=== PATIENT | female | born 1955 | race Caucasian/White ===

== ENCOUNTER → 2019-09-08 16:27 | Outpatient (CLI) | payer OTHER, SELFPAY ==
--- NOTE | 2019-09-08 16:33 | MM_ITS ---
PROCEDURE: MM DIG SCREENING MAMM BI W/CAD CLINICAL INDICATION: SCREENING COMPARISON: MAMMOGRAM SCREENING from 03/29/2009 TECHNIQUE: Standard CC and MLO images were obtained. R2 CAD reviewed. FINDINGS: Average fibroglandular tissue. There are bilateral benign-appearing nodules with a few areas of asymmetry which may be related to fibroglandular tissue. 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 Benign-appearing calcifications are also noted small cluster of calcifications noted in the upper outer left breast and lower inner right breast probably benign. Suggest 6 month follow-up to confirm new baseline.. No malignant appearing mass or malignant-appearing microcalcification. IMPRESSION: BI-RAD Category: 3 Probably Benign Finding Short Term Follow-up FOLLOW-UP: 6M 6Month Follow-up (A letter has been sent to the patient regarding results of the study.) Dictated by: Monty Gomez MD 09/16/2019 10:19 Electronically signed by Monty Gomez MD in [place] 09/16/2019 10:19
== END ==
PROVIDERS: PCP Family Medicine; Visit Provider Family Medicine
DX: Z12.31 Encounter for screening mammogram for malignant neoplasm of breast (principal)
CPT/HCPCS: 77067

== ENCOUNTER 2025-02-24 07:58 | Outpatient (CLI) | payer MEDICARE, SELFPAY ==
[2025-02-24 08:48] LABS: Basophils # 0.1 K/mm3 (0-0.2); Basophils % 1.1 % (0.1-2.0); Eosinophils # 0.1 K/mm3 (0.0-0.4); Eosinophils % 2.1 % (0.1-12.0); Hematocrit 47.9 % (37.0-47.0); Hemoglobin 16.3 g/dL (12.2-16.2); Lymphocytes # 1.7 K/mm3 (0.7-4.5); Lymphocytes % 27.8 % (10-50); Mean Corpuscular Hemoglobin 31.6 pg (27.0-31.2); Mean Corpuscular Volume 92.8 fl (81-99); Mean Platelet Volume 10.7 fl (7.4-10.4); Monocytes # 0.6 K/mm3 (0.1-1.0); Monocytes % 9.9 % (1.7-9.3); Neutrophils # 3.6 K/mm3 (1.8-7.8); Neutrophils % 58.1 % (37.0-80.0); Platelet Count 216 K/mm3 (142-424); Red Blood Count 5.16 M/mm3 (4.20-5.40); White Blood Count 6.2 K/mm3 (4.8-10.8)
[2025-02-24 09:04] LABS: Albumin Level 4.1 g/dl (3.5-5.0)
[2025-02-24 09:05] LABS: Chloride 100 mmol/L (98-107); Potassium 3.8 mmoL/L (3.5-5.1); Sodium 135 mmol/L (136-145)
[2025-02-24 09:07] LABS: Alanine Aminotransferase 31 U/L (12-78); Anion Gap 10.8 mEq/L (5-15); Aspartate Amino Transferase 36 U/L (14-36); Bilirubin,Unconjugated 0.5 mg/dL (0.0-1.1); Blood Urea Nitrogen 30 mg/dl (7-17); Carbon Dioxide 28 mmol/L (22.0-30.0); Estimated Glomerular Filt Rate 49 ml/min (>60); GFR (African American) 60 ML/MIN (>60)
[2025-02-24 09:08] LABS: Alkaline Phosphatase 77 U/L (38-126); Bilirubin,Direct 0.2 mg/dl (0.0-0.4); Bilirubin,Indirect 0.5 mg/dL (0.0-0.9); Bilirubin,Total 0.7 mg/dl (0.2-1.3); Calcium 9.9 mg/dl (8.4-10.2); Chol/HDL Ratio 3.2 (1-3.5); Cholesterol 250 mg/dl (140-200); Glucose 101 mg/dl (74-100); HDL Cholesterol 77 mg/dl (40-60); Total Protein,Serum 6.6 g/dl (6.3-8.2); Triglycerides 108 mg/dl (30-150); VLDL Cholesterol 22 mg/dL (0-40)
[2025-02-24 09:19] LABS: Direct LDL Cholesterol 134.35 mg/dL (100-129)
[2025-02-24 09:24] LABS: Free T4 (Free Thyroxine) 1.33 ng/dl (0.78-2.19)
[2025-02-24 09:39] LABS: Thyroid Stimulating Hormone 5.16 uIU/mL (0.465-4.68)
[2025-02-24 10:15] LABS: Hemoglobin A1C 5.5 % (4.0-6.0)
[2025-02-26 16:19] LABS: Cortisol,AM 13.8 ug/dL (6.2-19.4)
== END 2025-02-24 23:59 | disposition home or self-care (01) ==
LOC: LAB 08:00
PROVIDERS: PCP Nurse Practitioner Family; Visit Provider Internal Medicine
DX: R94.31 Abnormal electrocardiogram [ECG] [EKG] (principal); I10 Essential (primary) hypertension; E11.9 Type 2 diabetes mellitus without complications; G47.33 Obstructive sleep apnea (adult) (pediatric); R53.83 Other fatigue; R06.00 Dyspnea, unspecified; R07.9 Chest pain, unspecified
CPT/HCPCS: 36415; 80048; 80061; 80076; 82533; 83036; 84439; 84443; 85025

== ENCOUNTER 2025-03-15 09:28 | Outpatient (CLI) | payer MEDICARE, SELFPAY ==
--- NOTE | 2025-03-15 | CA_ITS ---
APPROVED REPORT Exam: Pharmacologic Technologist: Sushma Garza Ht: 4 ft 9 in Wt: 226 lbs BSA: 1.89 m2 Stress Test Details Test: Lexiscan Reason for pharmacologic stress test: physical limitation. HR Resting HR: 60 bpm Max Heart Rate (APMHR): 151 bpm Max HR Achieved: 73 bpm Target HR (85% APMHR): 128 bpm % of APMHR: 48 Recovery HR: 65 bpm BP Resting BP: 120.0/51.0 mmHg Max BP: 120.0/51.0 mmHg Recovery BP: 107.0/59.0 mmHg ECG Resting ECG: NSR Stress ECG Conclusion Symptoms: None. Arrhythmias/Ectopy: None. ST-T Changes: <1.[address] Segment changes. Conclusion: Non-Diagnostic Lexiscan stress. Electronically signed by : Jackie Camop MD 03/15/2025 22:50:16
--- NOTE | 2025-03-15 | CA_ITS ---
APPROVED REPORT EXAM: Comprehensive 2D, Doppler, and color-flow Echocardiogram Slat Basket Maker Machine: Danisha Melendez CRT Ht: 4 ft 11 in Wt: 226lbs BSA: 1.94 BP: 113/65 mmHg Indications: Abnormal ECG, Chest Pain, Shortness of Breath, Diabetes, Hyperlipidemia, Hypertension/HDD, ALCIDES 2D Dimensions LA Volume 33.00 mL LA Volume Index 16.60 mL/m2 (M/F) 16-34 M-Mode Dimensions RVDd 2.39 cm (0.9-2.6) LA Diam 3.47 cm (1.9-4.0) LVDd 4.18 cm (3.5-5.7) LVDs 3.75 cm (3.5-5.7) IVSd 1.69 cm (0.6-1.1) PWd 0.80 cm (0.6-1.1) EF (Teich) 22.80% FS 10.30% EDV (Teich) 77.70 mL TAPSE 2.52 (<1.7) ESV (Teich) 60.00 mL LV Diastology E Decel Time 390 (160-240 msec) E/A Ratio 0.68 MED A' 8.70 cm/s LAT A' 15.50 cm/s Aortic Valve AO Peak GR. 5.90 mmHg Mitral Valve MV A Velocity 155.0 (40-130 cm/s) E/A Ratio 0.68 MV Mean Gr. 4.20 (<2mmHg) MV PHT 114.0 ms Pulmonary Valve PV Peak Velocity 158.0 (50-150 cm/s) Tricuspid Valve TR P. Velocity 114.00 cm/s RAP Estimate 10.00 mmHg RVSP 15.20 mmHg Left Ventricle The left ventricle is normal size. The left ventricular systolic function is normal. The left ventricular ejection fraction is within the normal range. There is increased LV wall thickness. There is normal LV segmental wall motion. The left ventricular diastolic function is normal. LVEF is 55%. Right Ventricle The right ventricle is normal size. The right ventricular systolic function is normal. Atria Left atrium is mildly dilated. Right atrium is mildly dilated. There is no Doppler evidence of interatrial shunt. Aortic Valve The aortic valve is mildly thickened. There is no aortic valvular stenosis. Trace aortic regurgitation. Mitral Valve Mild mitral annular calcification. The mitral valve leaflets are mildly thickened. No evidence of mitral valve stenosis. Mild mitral regurgitation. Tricuspid Valve Tricuspid valve is grossly normal in structure and function. Trace tricuspid rotation. There is insufficient TR jet to estimate RVSP. Pulmonic Valve The pulmonary valve is normal in structure. Trace pulmonic regurgitation. Great Vessels The aortic root is normal in size. IVC is normal in size and collapses >50% with inspiration. Pericardium There is no pericardial effusion. Other Information Study Quality: Technically Difficult Conclusion Technically difficult study due to poor acoustic windows. Normal biventricular systolic function. Biatrial dilation. Mild MR. Electronically signed by : Jackie Campo MD 03/15/2025 12:53:47
--- NOTE | 2025-03-15 11:30 | NM_ITS ---
APPROVED REPORT Exam: Nuclear Stress Test Indication: cp..soa..palpitations..fatigue Patient Location: Outpatient Stress Tech: Sushma Abernathy [place] Tech:Juany Stoner, ARRT, RT (R)(N) Ht: 4 ft 11 in Wt: 226 lbs Bra Size: 44d HR: 60 bpm BP: 120/51 mmHg BSA: 1.94 m2 TID: 1.06 BMI: 45.6 History: cp..soa..palpitations..fatigue Procedure: Patient received 0.4 mg of intravenous Lexiscan, resting heart rate 60 bpm, resting blood pressure 120/57 mmHg, with Lexiscan maximum heart rate achieved was 72 bpm which is 85 % of the maximum predicted heart rate and blood pressure was 100/53 mmHg. With Lexiscan, patient denied any complaint of chest pain. Cardiac Stress and Resting SPECT Images: Cardiac Stress and Resting SPECT images were obtained using technetium 99m Myoview 30.2 mCi stress and 10.20 mCi at rest. Resting and stress imaging in supine and prone positions demonstrate no evidence of fixed or reversible perfusion defects. Gated imaging demonstrates normal global and regional LV systolic function. LVEF is calculated at > 75%. Conclusion: No evidence of fixed or reversible perfusion defects. Gated imaging demonstrates normal global and regional LV systolic function. LVEF is calculated at > 75%. Electronically signed by : Jackie Campo MD 03/15/2025 22:43:10
[2025-03-15] MEDS: SODIUM CHLORIDE 0.9% 10ML SYR (RAD ONLY) 10 ML IV ×2 (13:24)
[2025-03-15] MEDS: ISOTOPE MYOVIEW (PER STUDY) 1 DOSE IV (13:24)
[2025-03-15] MEDS: REGADENOSON 0.4MG/5ML SYRINGE 0.4 MG IV (13:25)
== END 2025-03-15 23:59 | disposition home or self-care (01) ==
LOC: RT 09:30
PROVIDERS: PCP Nurse Practitioner Family; Visit Provider Internal Medicine
DX: I34.0 Nonrheumatic mitral (valve) insufficiency (principal); I10 Essential (primary) hypertension; E11.9 Type 2 diabetes mellitus without complications; R94.31 Abnormal electrocardiogram [ECG] [EKG]; G47.33 Obstructive sleep apnea (adult) (pediatric); R53.83 Other fatigue; R06.00 Dyspnea, unspecified; R07.9 Chest pain, unspecified
CPT/HCPCS: 78452; 93017; 93018; 93306; A9502; J2785

== ENCOUNTER → 2025-04-06 07:44 | Outpatient (CLI) | payer MEDICARE, SELFPAY ==
--- OUTSIDE RECORDS SUMMARY | 2025-04-06 07:46 | XMS_ITS | Data Portability ---
Author Organization [facility] GREGORY Asher ADMIN Address [address] [place] [address] Care Team Providers Care Billing Assistant Name Role Phone EHSAN RENDONANDA Primary Care Provider Assessment No assessment recorded. Plan of Treatment Reminders Order Date Submit Date Provider Last Modified By Organization Details Last Modified Time Details Appointments None record ed. Lab None record ed. Referral None record ed. Procedures None record ed. Surgeries None record ed. Imaging None record ed. Medication Orders None record ed. Patient TargetsNo targets recorded. Patient Instructions Encounter Date Encounter Id Patient Instructions Last Modified By Organization Details Last Modified Time 03/19/2023 [id number] I have personall y reviewed the data obtained and entered from the scribe, medical assistant ob gyn or nurse for this patient for this patient encounter. discussed with patient. Patient is candidate for hearing aid evaluation. [email or web address] Not available 03/19/2023 15:44:28 Reason for Referral None Reported. Results Created Date Observation Date Name Description Value Unit Range Abnormal Flag Note LastModifiedBy Organization Detail LastModifiedTime 03/16/20 23 03/16/2023 audio gram No observ ation record ed. [email or web address] Not Available 2022 15:10:36 Result Notes None recorded. Problems Name Problem SNOMED Code Status Onset Date Resolution Date Notes Provider Name and Address Organization Details Recorded Time Arthritis 4386854 Active Maria Teresa Wilman null, [place] - [facility] - [place] & [place] 2 14:22:40 Asthma 545741516 Active Maria Teresa Wilman null, [place] - [facility] - [place] & [place] 2 14:22:46 Seasonal allergic rhinitis 757000154 Active Maria Teresa Wilman null, [place] - [facility] - [place] & [place] 2 14:22:56 Diabetes mellitus 25002572 Active Maria Teresa Wilman null, [place] - [facility] - [facility] & [place] 2 14:23:03 Hypertensive disorder 08498700 Active Maria Teresa Wilman null, [place] - [facility] - [facility] & [place] 2 14:23:09 Allergic rhinitis 25533583 Active Maria Teresa Wilman null, [place] - [facility] - [facility] & [place] 3 09:28:25 Chronic ethmoidal sinusitis 38416210 Active Maria Teresa Wilman null, [place] - [facility] - [facility] & [place] 3 09:28:38 Chronic frontal sinusitis 56768280 Active Maria Teresa Wilman null, [place] - [facility] - [facility] & [place] 3 09:28:54 Deviated nasal septum 648542687 Active Maria Teresa Wilman null, [place] - [facility] - [facility] & [place] 3 09:29:03 Sensorineural hearing loss 35874196 Active 2022 ELLIS SALDIVAR, AUD [address] [facility], [place], [address] , [place] - [facility] - [place] & [place] 3 15:07:53 Problem Notes None recorded. Procedures Surgical History Date Name Laterality Status Provider Name and Address Organization Details Recorded Time 11/23/18 66 Appendectomy completed Maria Teresa Wilman [place] - [facility] - [place] & [place] 08/25/2022 11:19:46 11/23/18 66 Tonsillectomy/Ad enoidectomy completed Maria Teresa Wilman [place] - [facility] - [place] & [place] 08/25/2022 11:19:46 Other completed Maria Teresa Wilman [place] - ELEVATOR SERVICE TECHNICIAN T - [place] & [place] 08/25/2022 11:19:46 Sinus Surgery completed Maria Teresa Wilman [place] - [facility] - [place] & [place] 09/19/2022 08:44:35 Imaging Results Imaging Date Name Status LastModified by [facility] Details LastModified Time 03/16/2023 audiogram completed [email or web address] Information no t available 03/16/2023 15:10:36 Procedure Notes None recorded. Medical Equipment None Reported. Allergies No known drug allergies Medications Name Sig Start Date Stop Date Status Note LastModified by Organization Details LastModified Time prednisone 10 mg tablet TAKE 1 TABLET TWICE DAILY x7 DAYS, THEN 1 DAILY x7 DAYS 09/19 completed Not Available Not Available Not Available hydrocodone 5 mg-acetamin ophen 325 mg tablet Take 1 tablet every 6 hours by oral route as needed for 5 days. 10/14 completed Not Available Not Available Not Available meclizine 12.5 mg tablet Take 1 tablet every 12 hours by oral route. active Not Available Not Available No t Available amoxicillin 500 mg tablet Take 1 tablet every 12 hours by oral route as directed for 7 days. 10/14 completed Not Available Not Available Not Available levothyroxi ne 25 mcg tablet Take 1 tablet every day by oral route. active Not Available Not Available No t Available lisinopril 10 mg tablet Take 1 tablet every day by oral route. active Not Available Not Available No t Available triamterene 37.5 mg-hydrochl orothiazide 25 mg tablet Take 1 tablet every day by oral route. active Not Available Not Available No t Available montelukast 10 mg tablet Take 1 tablet every day by oral route. active Not Available Not Available No t Available escitalopra m 20 mg tablet Take 1 tablet every day by oral route. active Not Available Not Available No t Available levocetiriz ine 5 mg tablet Take 1 tablet every day by oral route. active Not Available Not Available No t Available Stool Softener 100 mg tablet Take 1 tablet every day by oral route. active Not Available Not Available No t Available Flonase Allergy Relief 50 mcg/actuati on nasal spray,suspe nsion [place] 1 spray every day by intranasa l route. active Not Available Not Available No t Available albuterol sulfate 90 mcg/actuati on breath activated powder inhaler Inhale 1 puff every 4 hours by inhalatio n route. active Not Available Not Available No t Available Vitals Date Recorded Body height Provider Name an d Address Organization Details Last Updated DateTime 03/19/2023 149.86 cm Diana Treadwellley [place] - [facility] - [facility] & [place] 03/19/2023 14:04:11 Social History None recorded. Functional Status None recorded. Mental Status None recorded. Family History Relationship Description Onset Age of this Age Resolved Age Notes LastModified by Organization Details LastModified Time Mother Allergy pt. added direct ly (08/17) [email or web address] Not available 08/17/2022 14:13:10 Father Allergy pt. added direct ly (08/17) [email or web address] Not available 08/17/2022 14:13:10 Brother Allergy pt. added direct ly (08/17) [email or web address] Not available 08/17/2022 14:13:10 Medical History Condition Response Diabetes Y Obesity Y Arthritis Y Ear or Hearing Problems Y Headaches Y Thyroid Problems Y Hypertension Y Gynecological HistoryNo gynecological history recorded. Obstetrics History GPAL:G 0 P 0 0 0 0 Past Encounters Encounter ID Performer Location Encounter Start Date Encounter Closed Date Diagnosis/Indication Diagnosis SNOMED-CT Code Diagnosis ICD10 Code Diagnosis Note [id number] Beni Salinas MD [address] [place] [address] [place] [address] 08/20/2022 13:04:11 08/20/2022 13:37:25 Chronic frontal sinusitis 37096238 J32.1 Chronic et hmoidal sinusitis 06819338 J32.2 [id number] Beni Salinas MD [facility] [id number] [facility] [place] [place] [address] 08/25/2022 11:13:57 08/25/2022 11:48:51 Chronic ethmoidal sinusitis 89431626 J32.2 Chronic fr ontal sinusitis 12293519 J32.1 Deviated nasal septum 12 6240936 J34.2 [id number] Beni Salinas MD [facility] [place] [address] [place] [address] 09/19/2022 08:34:40 09/19/2022 09:00:22 Chronic ethmoidal sinusitis 68820714 J32.2 Chronic fr ontal sinusitis 78755260 J32.1 Deviated nasal septum 12 2436275 J34.2 Postoperative visit 1836 42689 Z09 [id number] Beni Salinas MD [address] [place] [address] [place] [address] 10/14/2022 14:23:08 10/14/2022 14:49:06 Seasonal allergic rhinitis 258394342 J30.2 Chronic et hmoidal sinusitis 12530943 J32.2 Chronic fr ontal sinusitis 54767847 J32.1 Deviated nasal septum 12 9245736 J34.2 Postoperative visit 1836 47061 Z09 [id number] Beni Salinas MD [facility] [place] [address] 8 02/17/2023 13:32:22 02/17/2023 13:50:47 Dysfunction of eustachian tube 54241025 H69.90 Ear pressu re sensation 695317529 H93.8X9 Hearing loss 98625927 H9 1.90 [id number] VENTURA [facility] [address] [place] [address] 8 03/16/2023 14:39:44 03/16/2023 15:02:28 Sensorineural hearing loss 61656109 H90.3 [id number] Beni Salinas MD [facility] [place] [address] [place] [address] 8 03/19/2023 13:36:57 03/19/2023 14:56:33 Dysfunction of eustachian tube 57106052 H69.90 Ear pressu re sensation 073536105 H93.8X9 Hearing loss 41041748 H9 1.90 [id number] [facility]A [facility] [address] [place] [address] 8 04/06/2023 11:52:45 04/06/2023 12:09:48 Sensorineural hearing loss 86180681 H90.3 [id number] VENTURA LAZO [facility] [place] [address] [place] [address] 8 05/20/2023 12:48:16 05/20/2023 13:12:01 Sensorineural hearing loss 60010385 H90.3 [id number] VENTURA LAZO [facility] [place] [address] 07/22/2023 14:12:11 07/22/2023 14:23:38 Sensorineural hearing loss 66557793 H90.3 Health Concerns Section Related Observation LastModified by Organization Detai ls LastModified Time None Recorded Concern Status LastModified by Organization Details LastModified Time None Recorded Advance Directives Directive None Recorded Payers Insurance Date Sequence Insurance Name Policy Number Policy Fenton Covered Member ID Fenton Member ID Guarantor Name 06/11/2024 1 [place]ICARE[place]ARE[place] Ceci Hankins [id number] Ceci Hankins 06/11/2024 2 [employer] SUPPLEMENTAL - [employer] (MEDICARE SUPPLEMENT) Ceci Hankins [id number] Ceci Hankins 08/14/2024 PAYMENT PLAN Ceci Hankins Notes Date Note Type Note Provider Name and Address Organization Details Recorded Time 03/16/2023 text/html Ms. Hankins was s een today for an audiologic evaluation due to long-standing/gradu al hearing loss and recent aural fullness/pressure per Dr. Beni Salinas MD. Ms. Hankins reports that she was told she had high frequency hearing loss several years ago. She denies any significant communication disruptions. She also denies tinnitus, dizziness, ear pain, and excessive noise exposure. Otoscopic inspection was unremarkable bilaterally. VENTURA LAZO [id number] , [place], [address], [facility] 03/16/2023 15:10:40 03/19/2023 text/html Patient is here for follow up after audio. Patient presents in follow-up. Beni Salinas [place] [address] [place] [address],[address], [place], [address], [facility] 03/24/2023 12:01:32 04/06/2023 text/html Ms. Hankins was s een today for a hearing aid discussion. VENTURA LAZO , [place], [address], [facility] 04/06/2023 12:09:41 05/20/2023 text/html Ms. Hankins was s een today for a hearing aid trial. F/u 2-3 weeks. VENTURA LAZO [address] [facility],[address], [place], [address], [facility] & [place] 05/20/2023 13:12:44 07/22/2023 text/html Ms. Hankins was s een today for a hearing aid fitting. ELLIS SALDIVAR, VENTURA [address] [facility],[address], [place], [address], [facility] & [place] 07/22/2023 14:32:00 OBGyn Episode No OBEpisode recorded.
== END ==
LOC: SL 07:45
PROVIDERS: PCP Internal Medicine; Visit Provider Internal Medicine
DX: G47.33 Obstructive sleep apnea (adult) (pediatric) (principal)
CPT/HCPCS: G0399

== ENCOUNTER 2025-08-30 07:48 | Outpatient (CLI) | payer MEDICARE, SELFPAY ==
--- OUTSIDE RECORDS SUMMARY | 2025-08-30 07:52 | XMS_ITS | Clinical Summary ---
Author Organization [facility] Address [address] [place] [address] Phone Care Team Providers Care Supervisor Shipping Name Role Phone Unavailable Primary Care Provider Unavailabl e Family History Medical History Relation Name Comments Breast Cancer Sister Relation Name Status Comments Sister Social History Tobacco Use Types Packs/Day Years Used Date Smoking Tobacco: Never Assessed Comments Unknown Sex and Gender Information Value Date Recorded Sex Assigned at Not on file Legal Sex Female 3:39 PM EDT Gender Identity Not on file Sexual Orientation Not on file Obstetrics History Para Term AB IAB SAB Ectopic Multiple Livin g Live Births 1 Plan of Treatment Health Maintenance Due Date Last Done Comments Wellness Exam Medicare 1958 Hepatitis C Screening 1973 Colonoscopy 2000 FIT 2000 Sigmoidoscopy 2000 Virtual Colonography 2000 Zoster (1 of 2) 2005 Bone Density Screening 2020 Pneumococcal Vaccine 50+ (2 of 2 - PCV) 01/11/2021 01/11/2020 COVID-19 Vaccine (1 - 2023-2 5 season) 2025 Influenza Vaccine (#1) 2025 Cologuard 12/16/2025 12/16/2022, 04/19/2019 Colon Cancer Screening 12/16/2025 Breast Cancer Screening 12/21/2026 12/21/19 25, 12/23/2023 DTaP/TDaP/Td (2 - Td or Tdap) 08/29/2030 08/29/2020 Hepatitis B Vaccine Aged Out No longe r eligible based on patient's age to complete this topic Meningococcal B Vaccine Aged Out No l onger eligible based on patient's age to complete this topic Procedures Procedure Name Priority Date/Time Associated Diagnosis Comments MM MAMMO DIGITAL GUERO SCREEN BILAT Routine 12/21/2024 2:45 PM EST Encounter for screening mammogram for malignant neoplasm of breast from Last 3 Months or Most Recently Relevant to Health Maintenance Results * MM MAMMO DIGITAL GUERO SCREEN BILAT (12/21/2024 2:45 PM EST) Anatomical Region Laterality Modality Breast Bilateral Mammography 12/21/2024 2:45 PM EST Impressions 12/22/2024 8:06 AM EST Negative ([id number]) RECOMMENDATION: Routine Screening Mammogram in 1 Year Bilateral No additional recommendation No additional laterality COMMENTS: Narrative 12/22/2024 8:06 AM EST EXAM: MM MAMMO DIGITAL GUERO SCREEN BILAT EXAM DATE: 12/21/2024 2:45 PM INDICATION: Z12.31-Encounter for screening mammogram for malignant neoplasm of [id number] COMPARISON STUDIES: Compared with prior studies the most recent being 12/23/2023 MM MAMMO DIGITAL GUERO SCREEN BILAT at [facility] TISSUE DENSITY: There are scattered areas of fibroglandular density. FINDINGS: No mammographic evidence of malignancy. Procedure Note Wade Anderson MD - 12/22/2024 EXAM: MM MAMMO DIGITAL GUERO SCREEN BILAT EXAM DATE: 12/21/2024 2:45 PM INDICATION: Z12.31-Encounter for screening mammogram for malignantneoplasm of [id number] COMPARISON STUDIES: Compared with prior studies the most recent being 12/23/2023 MM MAMMO DIGITAL GUERO SCREEN BILAT at [facility] TISSUE DENSITY: There are scattered areas of fibroglandular density. FINDINGS: No mammographic evidence of malignancy. IMPRESSION: Negative ([id number]) RECOMMENDATION: Routine Screening Mammogram in 1 Year Bilateral No additional recommendation No additional laterality COMMENTS: Darryl Bashir NP IMG MAMMOGRAPHY ORDERABLES Fin al Result from Last 3 Months or Most Recently Relevant to Health Maintenance Insurance MEDICARE IN PART A AND B MEDICARE [id number] [address]
--- OUTSIDE RECORDS SUMMARY | 2025-08-30 07:52 | XMS_ITS | Clinical Summary ---
Author Organization Healthcare Address [address] [id number] Care Team Providers Care Geologic Technician Name Role Phone Good Cavanaugh MD Primary Care Provider [phone] Family History Medical History Relation Name Comments Cardiac disorder Father Cardiac disorder Mother Cataracts Mother Anxiety disorder Other 1 Cardiac disorder Other 2 Cardiac disorder Other 3 Diabetes Other 4 Other cancer Other 5 Cataracts Sister 1 Glaucoma Sister 2 Relation Name Status Comments Father Mother Other 1 Other 2 Other 3 Other 4 Other 5 Sister 1 Sister 2 Social History Tobacco Use Types Packs/Day Years Used Date Smoking Tobacco: Never Alcohol Use Standard Drinks/Week Comments Yes 0 (1 standard drink = 0.6 oz pure alcohol) Alcoholic Drinks/day: Rarely consumes alcohol Comments Unknown Sex and Gender Information Value Date Recorded Sex Assigned at Not on file Legal Sex Female 7:39 PM EDT Gender Identity Not on file Sexual Orientation Not on file Last Filed Vital Signs Vital Sign Reading Time Taken Comments Blood Pressure 128/84 08/09/2019 3:53 PM EDT Pulse 88 01/29/2018 2:36 PM EST Temperature - - Respiratory Rate 16 08/03/2018 3:26 PM EDT Oxygen Saturation - - Inhaled Oxygen Concentration - - Weight 108 kg (238 lb 12.1 oz) 08/09/2019 3:53 P M EDT Height 149.9 cm (4' 11 ) 08/09/2019 3:53 PM EDT Body Mass Index 48.22 08/09/2019 3:53 PM EDT Plan of Treatment Not on file Care Teams Geologic Technician Relationship Specialty Start Date End Date Good Cavanaugh MD [address] [place] [address] PCP - General 04/05/21
[2025-08-30 09:00] VITALS: PULSE 56; PULSE 58
[2025-08-30] MEDS: ALBUTEROL 0.083% 2.5 MG/3 ML NEB IH (09:00)
== END 2025-08-30 23:59 | disposition home or self-care (01) ==
LOC: RT 07:49
PROVIDERS: PCP Nurse Practitioner Family; Visit Provider Internal Medicine Pulmonary Disease
DX: R06.09 Other forms of dyspnea (principal); R06.02 Shortness of breath
CPT/HCPCS: 94060; 94618; 94640; 94726; 94729